=== PATIENT | male | born 1955 | race Caucasian/White ===

== ENCOUNTER 2019-07-02 22:31 | Emergency (ER) | payer MEDICARE, SELFPAY ==
[2019-07-02] VITALS (8 sets, daily range): BP systolic 119–145; BP diastolic 69–75; PULSE 61–68; RESP 10–13; TEMP 36.5; O2SAT 96–98
--- NOTE | 2019-07-02 22:56 | W.ED.GENAD ---
Discharge Plan Disposition Patient Disposition: HOME Condition: Good Discharge Details Chief Complaint: Dizzy/Sync Clinical Impression: Near syncope Primary Care Provider: Gonzales Zhu ED Provider: Neel Wiley [place] Meds and New Rx's Prescriptions: Continued citalopram [Celexa] 20 mg tablet 20 mg PO DAILY Qty: 90 RF: 4 Discharge Instructions Instructions: Near Syncope (ED) Additional Instructions: Your laboratory studies, chest x-ray and EKGs all look fine tonight. Your potassium was a little low. Please drink plenty of fluids to stay hydrated. Please contact your primary care physician for follow-up within the week. Return to ED for syncope, chest pain, shortness of breath, neurologic changes, other concerns. Referrals: Gonzales Zhu [Primary Care Provider] - Discharge Data Discharge Date/Time-TO BE ENTERED AT DEPARTURE: 07/03/19 02:55 Medical Decision Making <ALIYAH Steel - Last Filed: 07/03/19 17:41> 64-year-old gentleman presents via EMS for sounds to be a near syncopal episode. Patient felt a charley horse in his right leg, upon standing felt warm, nauseous, generalized weakness. Reports essentially being asymptomatic now. Examination is unremarkable, he is neurologically intact. Throughout the episode does not report any chest pain whatsoever. Denies any focal weakness. Given his ongoing charley horses, certainly could be a component of dehydration or electrolyte abnormality. It does sound as though his symptoms could be related to a vagal response upon standing. Given his age, obesity, lack of cardiac work-up, I do believe initiating a cardiac work-up is reasonable although based upon his symptoms low suspicion for ACS. His symptoms do not sound to be neurological in nature, without obtain head CT. Patient never had any chest pain, and EKG is unremarkable. Will not initiate aspirin therapy. If patient remains asymptomatic here in the ER his initial troponin work-up are unremarkable I do feel as though observing the patient in the ER for repeat 3-hour troponin is perfectly reasonable. If this too is normal then he can likely be discharged safely with prompt outpatient follow-up with his primary care provider. Case and evaluation discussed with Dr. Wiley. Please see his note. Laboratory values reveal WBC of 7.7 hemoglobin 14.3 hematocrit 41.9 platelet count 224. Sodium 137, potassium 3.2, creatinine 1.18 estimated GFR greater than 60. Glucose 118. Calcium 9.1, mag 1.9, liver function unremarkable. Troponin less than 0.05. TSH 6.96. Although the TSH does fall outside of the normal range, numbers not grossly abnormal to likely be causing acute symptoms. Urine is clear, negative leukocyte esterase, negative nitrates. Patient returned from x-ray. He was given 40 p.o. potassium Initial work-up unremarkable for emergent process. Patient agreeable to 3-hour repeat troponin and EKG. He remains asymptomatic Medical Records Medical records reviewed: Yes I reviewed the patient's medical records. Imaging Data Radiologic Study: Attestation: I personally reviewed and interpreted this imaging study as follows: Imaging: X-Ray My impression: Negative. Confirmed by virtual radiology Lab Data Lab results reviewed: Yes I reviewed the patient's lab results. Lab results narrative: Laboratory Tests Range/Units 07/02/19 07/02/19 07/02/19 22:37 22:37 23:00 WBC (4.4-10.8) k/cumm 7.70 RBC (4.50-6.00) m/cumm 4.71 Hgb (13.5-17.5) g/dL 14.3 Hct (40.0-50.0) % 41.7 MCV (80-95) fL 88.5 MCH (27.0-33.0) pg 30.4 MCHC (32.0-36.0) g/dL 34.3 RDW (11.8-14.1) % 13.1 Plt Count (130-400) x1000/uL 224 MPV (8.0-11.0) fL 10.2 Immature Gran % % 0.1 Neutrophils % 58.0 Lymphocytes % 29.6 Monocytes % 10.1 Eosinophils % 1.9 Basophils % 0.3 Absolute Neutrophils (1.2-6.7) k/cumm 4.46 Absolute Lymphocytes (1.2-3.4) k/cumm 2.28 Absolute Monocytes (0.11-0.7) k/cumm 0.78 H Absolute Eosinophils (0.0-0.7) k/cumm 0.15 Absolute Basophils (0.0-0.2) k/cumm 0.02 Sodium (136-145) mmol/L 137 Potassium (3.5-5.1) mmol/L 3.2 L Chloride (98-107) mmol/L 101 Carbon Dioxide (21.0-32.0) mmol/L 27.0 Anion Gap (3-11) mmol/L 9.0 BUN (7-18) mg/dL 25 H Creatinine (0.70-1.30) mg/dL 1.18 Estimated GFR/1.73 m2 (mL/min/1.73m2) >= 60.00 Glucose (74-106) mg/dL 118 H Calcium (8.5-10.1) mg/dL 9.1 Magnesium (1.8-2.4) mg/dL 1.9 Total Bilirubin (0.2-1.0) mg/dL 0.3 AST (15-37) U/L 25 ALT (16-63) U/L 36 Alkaline Phosphatase (46-116) U/L 77 Troponin I (<0.06) ng/Ml < 0.05 Total Protein (6.4-8.2) g/dL 7.4 Albumin (3.4-5.0) g/dL 3.8 TSH (0.36-3.74) uIU/mL 6.96 H Urine Color (Yellow) Yellow Urine Clarity (Clear) Clear Urine pH (5-8) 6.0 Ur Specific [place] (1.005-1.025) >= 1.030 H Urine Protein (Negative) mg/dL Negative Urine Ketones (Negative) mg/dL Negative Urine Blood (Negative) Negative Urine Nitrite (Negative) Negative Urine Bilirubin (Negative) Negative Urine Urobilinogen (Up TO 0.2) EU/dL 0.2 Ur Leukocyte Esterase (Negative) Negative Urine Glucose (Negative) mg/dL Negative ECG Data Attestation: I personally reviewed and interpreted this ECG (s) as follows: Interpretation: EKG performed at 2238, reviewed and interpreted with Dr. Wiley. Sinus rhythm, ventricular of 64. No acute ST elevation or depression segments. <Neel Wiley MD - Last Filed: 07/03/19 02:19> Patient signed over to me from ALIYAH Sánchez at end of his shift. Patient seen and evaluated by me. Patient discussed at length with AILYAH Sánchez. EKG and laboratory studies reviewed. Patient remains asymptomatic in the ED. Second EKG and troponin are normal. Suspect patient with prolonged vagal reaction to the charley horse which woke him from sleep. Will however have him follow-up with primary care as outpatient. Return to ED for syncope, chest pain, shortness of breath, neurologic changes. Lab Data Lab results reviewed: Yes I reviewed the patient's lab results. ECG Data Attestation: I personally reviewed and interpreted this ECG (s) as follows: Prior ECG tracings: available for review Interpretation: Repeat EKG sinus bradycardia at 54. Normal axis and intervals. Normal ST segments. HPI <ALIYAH Steel - Last Filed: 07/03/19 17:41> General Mode of arrival: EMS. Date/Time Provider Initiated Documentation: 07/02/19 22:33. Limitations to Documentation: no limitations. Information obtained by: patient. HPI Narrative: This is a 64-year-old gentleman with a history of anxiety and depression presenting to the ER via EMS. He reports around 9:00 this evening he felt a charley horse in his right anterior-medial thigh. He reports that he has been getting these on a rather consistent basis over the past few months. This did not feel different than his typical symptoms and he reports it lasted for several minutes. He attempted to stand and walk it off. Upon doing so he reports feeling flushed, nauseous, generalized weakness. He tells me he felt dizzy although did not feel like the room was spinning, more so like he does not walk safely. He was afraid that he could fall and lowered himself to the ground. During this episode he denies any headache, visual changes, neck pain, chest pain, cough, abdominal pain, focal weakness, numbness or tingling. Patient is a rather vague and poor historian, does have difficulty telling me exactly how and what he feels. He denies any shortness of breath but reports that it felt like I did more work that I really did. 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 He denies recent illness or trauma. He reports that he had adequate intake of fluid and food today. He denies any history of smoking or alcohol use. He has never had a stress test or echocardiogram. He reports at this time he essentially feels asymptomatic and feels like he could ambulate safely. Related Data Home Medications Medication Instructions Recorded Confirmed citalopram 20 mg tablet 20 mg PO DAILY #90 tab-cap 11/30/17 07/02/19 Previous Rx's Medication Instructions Recorded citalopram 20 mg tablet 20 mg PO DAILY #90 tab-cap 11/30/17 Allergies Allergy/AdvReac Type Severity Reaction Status Date / Time No Known Allergies Allergy Verified 07/02/19 22:36 General Stated Complaint: Dizzy/Sync MARY: 3 Review of Systems <ALIYAH Steel - Last Filed: 07/03/19 17:41> Constitutional Constitutional: Denies fatigue, Denies fever(s), Denies headache(s) and Reports weakness Eyes Eyes: Denies change in vision ENT Ears, Nose, Mouth, and Throat: Denies headache(s), Denies neck pain and Denies sore throat Cardiovascular Cardiovascular: Denies chest pain and Denies dyspnea Respiratory Respiratory: Denies cough and Denies dyspnea Gastrointestinal Gastrointestinal: Denies abdominal pain, Denies diarrhea, Reports nausea and Denies vomiting Genitourinary Genitourinary: Denies dysuria Musculoskeletal Musculoskeletal: Denies back pain, Denies arthralgias, Reports muscle cramps, Denies neck pain, Denies numbness and Denies tingling Integumentary/Breasts Skin/Breast: Denies rash Neurologic Neurologic: Denies headache(s), Denies localized weakness, Denies numbness, Denies tingling and Reports weakness Endocrine Endocrine: Denies fatigue PFSH <ALIYAH Steel - Last Filed: 07/03/19 17:41> Surgical History PROCEDURES Bertrand right shoulder sx Family History Mother No problems noted. Father Alcohol abuse Sister No problems noted. Brother Diabetes Brother No problems noted. Daughter No problems noted. Daughter No problems noted. Social History Smoking/Tobacco Use Status: Never Alcohol Intake: never Substance use type: does not use current occupation: RETAILER Pets and animals: Yes Pets and animals: dog(s) What type of physical activity do you participate in: none Frequency: does not exercise Karoline/Orthodox: Episcopalian Special karoline needs: No Do you feel safe at home: Yes Do you feel safe in your relationship?: Yes Exam <ALIYAH Steel - Last Filed: 07/03/19 17:41> Const General: cooperative, healthy appearing, comfortable and no acute distress Orientation: alert, awake and oriented x3 [facility] Head: normal to inspection, no palpable skull fracture, normocephalic and atraumatic Ears: external ears normal, TM's normal bilaterally and EAC's normal Face and sinus: normal facial exam Mouth: moist mucous membranes Throat: posterior oropharynx normal Eyes General: appearance normal, both eyes and all related structures Alignment and Position: alignment normal Periorbital: periorbital findings normal Eyelids: eyelids normal Conjunctivae: conjunctivae normal Sclera: sclerae normal Cornea: corneas normal Pupils: PERRL EOM: EOM intact bilaterally Direct ophthalmoscopy: normal light reflex Neck Neck: normal visual inspection, full ROM, no meningeal signs, trachea midline, supple and nontender Chest Chest: normal inspection of the chest and normal palpation of entire chest wall Resp Effort & Inspection: normal respiratory effort and able to speak in complete sentences Auscultation: clear to auscultation bilaterally Cardio Rate: regular rate Rhythm: regular rhythm GI Inspection: normal to inspection and obesity Palpation: soft, not firm, no guarding, not rigid and nontender Auscultation: normal bowel sounds Back/Spine/Pelvis Back: no CVA tenderness and No back tenderness Skin General skin exam: no rashes or lesions noted Neuro General: patient alert, patient awake, patient oriented x3, moves all extremities and no focal motor deficits Cranial Nerves: CN's II-XI intact bilaterally Cognition: normal cognition Speech: speech normal Gait: normal gait Motor: muscle tone normal throughout and strength 5/5 throughout Sensory Exam: no sensory deficits noted Coordination: [id number] test normal, Romberg test normal and Does not sway with eyes open Extrem General: normal to inspection, full ROM, capillary refill normal, no pedal edema and no calf tenderness Psych Appearance: grossly normal Mental Status: mental status grossly normal Course <ALIYAH Steel - Last Filed: 07/03/19 17:41> Vital Signs Vital signs: Vital Signs Temperature 36.5 C 07/02/19 22:31 Pulse 65 07/02/19 22:31 Respiratory Rate 12 07/02/19 22:31 Blood Pressure 144/71 H 07/02/19 22:31 Pulse Oximetry 98 07/02/19 22:31 Temperature 36.5 C 07/02/19 22:31 Pulse 65 07/02/19 22:31 Respiratory Rate 12 07/02/19 22:31 Respiratory Effort Non-Labored 07/02/19 22:33 Blood Pressure 144/71 H 07/02/19 22:31 Blood Pressure Position Supine 07/02/19 22:31 Pulse Oximetry 98 07/02/19 22:31 Oxygen Delivery Method Room Air 07/02/19 22:31 Oxygen Flow Rate 0 07/02/19 22:31 Pain Level 0 07/02/19 22:31 Sign Out <ALIYAH Steel - Last Filed: 07/03/19 17:41> Sign Out Data: Sign Out Comment: Pending observation, repeat 3-hour troponin and EKG, final disposition. Last updated by Srinivas Sánchez PA at 07/02/19 23:55
[2019-07-02 23:01] LABS: Abs Immature Grans 0.01 k/cumm (0.0-0.09); Absolute Basophil Count 0.02 k/cumm (0.0-0.2); Absolute Eosinophil Count 0.15 k/cumm (0.0-0.7); Absolute Lymphocyte Count 2.28 k/cumm (1.2-3.4); Absolute Monocyte Count 0.78 k/cumm (0.11-0.7); Absolute Neutrophil Count 4.46 k/cumm (1.2-6.7); Basophils % 0.3; Eosinophils % 1.9; HCT 41.7 % (40.0-50.0); HGB 14.3 g/dL (13.5-17.5); Immature Grans % 0.1 %; Lymphocytes % 29.6; Mean Corp. HGB Concentration 34.3 g/dL (32.0-36.0); Mean Corpuscular Hemoglobin 30.4 pg (27.0-33.0); Mean Corpuscular Volume 88.5 fL (80-95); Mean Platelet Volume 10.2 fL (8.0-11.0); Monocytes % 10.1; Platelet Count 224 x1000/uL (130-400); RBC 4.71 m/cumm (4.50-6.00); RBC Distribution Width 13.1 % (11.8-14.1)
[2019-07-02] MEDS: Normal Saline 1,000 ML 1000 ML IV (23:05)
[2019-07-02 23:09] LABS: Bilirubin Negative (Negative); Blood Negative (Negative); Clarity Clear (Clear); Glucose Negative (Negative); Ketones Negative (Negative); Leukocyte Esterase Negative (Negative); Nitrite Negative (Negative); Specific Gravity >= 1.030 (1.005-1.025); Urobilinogen 0.2 EU/dL (Up TO 0.2)
--- NOTE | 2019-07-02 23:20 | DI.RAD_ITS ---
EXAM: XR CHEST 2V PA LATERAL CLINICAL HISTORY: near syncope TECHNIQUE: 2D digital imaging was performed. COMPARISON: CR LEFT SHOULDER COMPLETE from 07/02/2014 CR RIGHT SHOULDER COMPLETE from 07/02/2014 FINDINGS: MEDIASTINUM: Normal. HEART: Normal. PULMONARY VASCULATURE: Normal. LUNGS: Clear. PLEURAL SPACE: No pleural effusion or pneumothorax. BONE:Old healed left rib fractures are present. OTHER FINDINGS:Since the prior examination of the shoulder, the patient has undergone a right shoulde r arthroplasty. IMPRESSION: No acute pulmonary findings. DATA REPOSITORY: RADIATION DOSE DELIVERED:
[2019-07-02 23:21] LABS: ALT 36 U/L (16-63); AST 25 U/L (15-37); Albumin 3.8 g/dL (3.4-5.0); Alkaline Phosphatase 77 U/L (46-116); BUN 25 mg/dL (7-18); Bilirubin, Total 0.3 mg/dL (0.2-1.0); CREATININE 1.18 mg/dL (0.70-1.30); Calcium 9.1 mg/dL (8.5-10.1); Chloride 101 mmol/L (98-107); Glucose 118 mg/dL (74-106); Magnesium 1.9 mg/dL (1.8-2.4); Potassium 3.2 mmol/L (3.5-5.1); Sodium 137 mmol/L (136-145); TSH 6.96 uIU/mL (0.36-3.74); Total Protein 7.4 g/dL (6.4-8.2); Troponin I < 0.05 ng/Ml (<0.06)
[2019-07-02] MEDS: Potassium Chloride 20 MEQ TABCR 40 MEQ PO (23:24)
--- NOTE | 2019-07-02 23:26 | DI.VRAD_ITS ---
PROCEDURE INFORMATION: Exam: XR Chest, 2 Views Exam date and time: 07/02/2019 11:16 PM Age: 64 years old Clinical indication: Other: Near syncope; Patient HX: PT states kept falling down today TECHNIQUE: Imaging protocol: XR of the chest Views: 2 views. COMPARISON: No relevant prior studies available. FINDINGS: Lungs: The lung torres appear clear. Pleural space: No pleural effusion or pneumothorax is seen. Heart/Mediastinum: Heart size is normal. The mediastinal contours appear normal. Bones/joints: There is a right shoulder arthroplasty prosthesis. There appear to be several old left-sided rib fractures. IMPRESSION: No active disease is seen in the chest. Dictated and Authenticated by: Steven Tee MD. Ordering:MIKAYLA Espino MD
[2019-07-03] VITALS (7 sets, daily range): BP systolic 123–126; BP diastolic 56–80; PULSE 55–64; RESP 8–22; TEMP 36.5; O2SAT 95–98
[2019-07-03 02:01] LABS: Troponin I < 0.05 ng/Ml (<0.06)
== END 2019-07-03 02:55 | disposition home or self-care (01) ==
PROVIDERS: Physician Assistant; Emergency Provider Emergency Medicine; PCP Family Medicine
DX: R55 Syncope and collapse (principal); E87.6 Hypokalemia; M62.831 Muscle spasm of calf
CPT/HCPCS: 36415; 80053; 93005; 96360; 99285; 71046; 81003; 83735; 84443; 84484; 85025; 93010

== ENCOUNTER 2021-04-21 16:38 | Outpatient (REF) | payer MEDICARE, SELFPAY ==
[2021-04-22 13:50] LABS: COVID-19 RT-PCR UVMMC Result Negative (Negative)
== END 2021-04-21 16:39 | disposition home or self-care (01) ==
LOC: LBN 16:38
PROVIDERS: PCP Family Medicine; Visit Provider Family Medicine
DX: J02.9 Acute pharyngitis, unspecified (principal); R05.9 Cough, unspecified; Z20.822 Contact with and (suspected) exposure to COVID-19
CPT/HCPCS: U0003; U0005

== ENCOUNTER 2021-10-04 08:56 | Outpatient (CLI) | payer MEDICARE, SELFPAY ==
--- NOTE | 2021-10-04 08:30 | DI.RAD_ITS ---
Exam(s) XR KNEE RT 3V AP,LAT,CRYSTAL EXAM: XR KNEE RT 3V AP,LAT,CRYSTAL CLINICAL HISTORY: right knee pain. TECHNIQUE: 2D digital imaging was performed of the right knee. Three views obtained. AP, lateral an d PA tunnel views were obtained. COMPARISON: No priors for comparison. FINDINGS: BONES: No acute fracture is present. No bony destructive lesion is seen. JOINTS: There is mild narrowing of the medial femoral tibial joint. Mild spurring is seen at the pos terior patella. There is a small suprapatellar joint effusion. SOFT TISSUE: Normal. IMPRESSION: Mild degenerative changes of the right knee. DATA REPOSITORY: RADIATION DOSE DELIVERED:
== END 2021-10-04 08:57 | disposition home or self-care (01) ==
LOC: DIORS 08:56
PROVIDERS: PCP Family Medicine; Referring Provider Family Medicine; Visit Provider Physician Assistant
DX: M23.91 Unspecified internal derangement of right knee (principal); M17.11 Unilateral primary osteoarthritis, right knee; S89.91XA Unspecified injury of right lower leg, initial encounter; X58.XXXA Exposure to other specified factors, initial encounter
CPT/HCPCS: 20610; 73562; 99213; J1040

== ENCOUNTER 2022-05-09 20:31 | Emergency (ER) | payer MEDICARE, SELFPAY ==
--- NOTE | 2022-05-09 20:30 | DI.CT_ITS ---
Exam(s) CT RENAL COLIC WO EXAM: CT RENAL COLIC WO CLINICAL HISTORY: right flank pain. TECHNIQUE: Imaging Protocol: Axial computed tomography images with coronal and sagittal reformatted images were created and reviewed. COMPARISON: No exams were available for comparison FINDINGS: ABDOMEN: Lung Bases: Coronary artery calcification is present. Liver: Normal density. No measurable mass. Gallbladder and biliary tract: No radiodense calculus or biliary ductal dilation. Pancreas: Normal density, no abnormal calcifications or inflammatory process. Spleen: Normal. Kidneys: Normal size, contour and axis.There is a 2 mm stone at the right UVJ causing mild hydronephr osis. There is a 2.7 cm simple cyst in the inferior pole of the right kidney. No follow-up is recom mended. Adrenal glands: No mass is seen. Lymph nodes: Within normal limits. Abdominal Aorta: Abdominal portion non-dilated. Mild atherosclerosis. PELVIS: Bladder:Not well distended limiting evaluation. Bowel: No obstruction or bowel wall thickening. Appendix is unremarkable. Peritoneal cavity: No ascites, collection or mesenteric inflammatory response. No free air. Reproductive organs: Unremarkable as visualized. Bones: Within normal limits. Soft Tissues: Within normal limits. IMPRESSION: There is a 2 mm stone on the bladder side of the right UVJ causing mild hydronephrosis. RADIATION DOSE DELIVERED: 1,308.44mGy.cm Total DLP DATA REPOSITORY: All CT scans at this facility are submitted to the National Radiology Data Registry (NRDR) Dose Index Registry (DIR) with the [employer] (ACR). RADIATION OPTIMIZATION: All CT scans at this facility use at least one of these dose optimization te chniques: automated exposure control; mA and/or kV adjustment per patient size (includes targeted exa ms where dose is matched to clinical indication); or iterative reconstruction.
[2022-05-09 20:35] VITALS: BP 160/99; PULSE 64; RESP 20; TEMP 36.7; O2SAT 97
--- NOTE | 2022-05-09 20:46 | ED.GENADUL_ITS ---
Discharge Plan Disposition Patient Disposition: Home Condition: Stable Discharge Details Clinical Impression: Right kidney stone Primary Care Provider: Phani Tsai ED Provider: Huy Barton Home Meds and New Rx's Prescriptions: New ondansetron 4 mg tablet,disintegrating 4 mg PO Q8H PRN (Reason: nausea and vomiting) Qty: 30 0RF Discharge Instructions Instructions: Kidney Stones (ED) Additional Instructions: your cat scan shows a small kidney stone, 2mm, on the right side follow up with urology you can take tylenol and ibuprofen as needed, follow dosing instructions on packaging if you have severe worsening pain, persistent vomiting or fevers return to the emergency department Referrals: Cholo Hughes MD [ [facility] STAFF PHYSICIAN] - Medical Decision Making 66 yo male with no chronic medical problems who comes in with cc of acute onset right lower back and oblique pain. HE denies any trauma or falls and felt well most of the day and then the pain started suddenly while he was standing. Denies pain like this in the past. He arrives stable speaking clearly and appears in pain. He did have an episode of vomiting. He poins to his right lower oblique and lower back where his pain is, no visible or palpable deformities, no abdominal tenderness. Suspect kidney stone given acute onset of pain and location, will proceed with cbc, cmp, and ct renal colic. ct confirms 2mm kidney stone nearly in the bladder on the right side. HE is feeling better, ua pending. urine shows no evidence of infection, he is pain free, stable for d/c, will provide follow up with urology and return precautions given Differential Diagnosis Differential Diagnosis: kidney stone, musculoskeletal pain Imaging Data Radiologic Study: Attestation: I personally reviewed and interpreted this imaging study as follows: Imaging: CT Scan Radiologist's impression: IMPRESSION: 1. Right ureteral vesicular junction stone, 2 mm, almost within the urinary bladder. 2. Mild right hydroureteronephrosis. Lab Data Lab results reviewed: Yes I reviewed the patient's lab results. HPI General Mode of arrival: ambulatory . Date/Time Provider Initiated Documentation: 05/09/22 20:31 . Limitations to Documentation: no limitations . Information obtained by: patient . History of Present Illness 66 year old M presents to the emergency department with the chief complaint of right flank pain, described as severe, with intensity rated at 9. and is localized to the back. Patient started experiencing this hour(s) (2) and it has been constant. No relieving factors improve symptom(s), No exacerbating factors reported . Patient notes denies fever/chills. Related Data Home Medications Medication Instructions Recorded Confirmed ondansetron 4 mg disintegrating 4 mg PO Q8H PRN nausea and 05/09/22 tablet vomiting #30 tabs Previous Rx's Medication Instructions Recorded ondansetron 4 mg disintegrating 4 mg PO Q8H PRN nausea and 05/09/22 tablet vomiting #30 tabs Allergies Allergy/AdvReac Type Severity Reaction Status Date / Time No Known Allergies Allergy Verified 10/04/21 08:15 General Stated Complaint: FlankPain MARY: 3 Review of Systems All systems reviewed & are unremarkable except as noted in HPI and below Constitutional Constitutional: Denies chills, Denies fever(s) and Denies weakness Cardiovascular Cardiovascular: Denies chest pain and Denies dyspnea Respiratory Respiratory: Denies cough and Denies dyspnea Gastrointestinal Gastrointestinal: Denies abdominal pain Genitourinary Genitourinary: Denies dysuria Musculoskeletal Musculoskeletal: Denies joint swelling Integumentary/Breasts Skin/Breast: Denies rash Neurologic Neurologic: Denies weakness PFSH All Active Problems (Updated 05/09/22 @ 22:20 by Huy Barton MD) Right kidney stone (Acute) Degenerative joint disease of right knee (Acute) Internal derangement of right knee (Acute) Depo-medrol injection: 10/04/21 Health maintenance alteration (Acute) 12/2020-patient declines colon cancer screening-aware of risks and benefits GINETTE on CPAP (Chronic) Tubular adenoma (Chronic 09/12/10) Mood disorder (Acute 09/17/15) Hearing loss (Acute) Depression (Chronic) Medical History (Updated 05/09/22 @ 22:20 by Huy Barton MD) Family history of diabetes mellitus in brother Surgical History PROCEDURES Bertrand right shoulder sx Family History Mother No problems noted. Father Alcohol abuse Sister No problems noted. Brother Diabetes Brother No problems noted. Daughter No problems noted. Daughter No problems noted. Social History (Updated 04/23/21 @ 10:42 by Shawnee Whelan Smoking/Tobacco Use Status: Former Tobacco Use tobacco type: cigarettes Quit Date: 02/14/72 Tobacco: How many years used: 50 Quit status: quit date established Second Hand Exposure: Yes Smoking risk assessment performed?: Yes Alcohol Intake: former Substance use type: painkillers Household members: spouse Housing: house Communication Needs: Hard of Hearing current occupation: RETAILER Pets and animals: Yes Do you think of yourself as: straight/heterosexual Current gender identity: male What is your relationship status?: How often do you talk on the phone with friends or family?: once per week How often do you get together with friends or relatives?: twice per week How often do you attend baptist or amish services?: 1-3 times per year Do you belong to any clubs or organized social groups?: yes Panel score (0-1 are the most socially isolated patients): 3 What type of physical activity do you participate in: walking Do you feel safe at home: Yes Do you feel safe in your relationship?: Yes Exam Const General: no acute distress Orientation: alert HENMT Head: normal to inspection Ears: external ears normal General nose exam: external nose normal Mouth: moist mucous membranes Eyes General: appearance normal, both eyes and all related structures Neck Neck: normal visual inspection Resp Effort & Inspection: normal respiratory effort and able to speak in complete sentences Cardio Rate: regular rate GI Palpation: soft and nontender Back/Spine/Pelvis Back: no CVA tenderness Skin General skin exam: no rashes or lesions noted Neuro General: patient alert and patient oriented x3 Extrem General: normal to inspection Psych Mental Status: mental status grossly normal Course Vital Signs Vital signs: Vital Signs Temperature 36.7 C 05/09/22 20:35 Pulse 64 05/09/22 20:35 Respiratory Rate 20 05/09/22 20:35 Blood Pressure 160/99 H 05/09/22 20:35 Pulse Oximetry 97 05/09/22 20:35 Temperature 36.7 C 05/09/22 20:35 Temperature Source Tympanic 05/09/22 20:35 Pulse 64 05/09/22 20:35 Respiratory Rate 20 05/09/22 20:35 Blood Pressure 160/99 H 05/09/22 20:35 Blood Pressure Position Sitting 05/09/22 20:35 Pulse Oximetry 97 05/09/22 20:35 Oxygen Delivery Method Room Air 05/09/22 20:35 Oxygen Flow Rate 0 05/09/22 20:35 Pain Level 9 05/09/22 20:35
[2022-05-09 21:04] LABS: Abs Immature Grans 0.04 10^3/uL (0.0-0.06); Absolute Basophil Count 0.04 10^3/uL (0.0-0.2); Absolute Eosinophil Count 0.11 10^3/uL (0.0-0.7); Absolute Lymphocyte Count 2.34 10^3/uL (1.2-3.4); Absolute Monocyte Count 0.81 10^3/uL (0.1-0.8); Absolute Neutrophil Count 6.94 10^3/uL (1.2-6.7); Basophils % 0.4; Eosinophils % 1.1; HCT 46.5 % (40.0-50.0); HGB 15.8 g/dL (13.5-17.5); Immature Grans % 0.4; Lymphocytes % 22.8; MCH 29.6 pg (27.0-33.0); MCV 87 fL (80-95); MPV 9.5 fL (8.0-11.0); Monocytes % 7.9; Neutrophils % 67.4; Platelet Count 204 10^3/uL (130-400); RBC 5.33 10^6/uL (4.36-5.78); RDW 12.7 % (11.8-14.1); RDW-SD 40.6 fL; WBC 10.28 10^3/uL (4.4-10.8)
[2022-05-09] MEDS: Normal Saline 1,000 ML 1000 ML IV (21:07)
[2022-05-09] MEDS: Ketorolac 15 MG/ML VIAL IVP (21:07)
[2022-05-09] MEDS: Ondansetron 4 MG/2 ML VIAL IVP (21:08)
[2022-05-09 21:19] LABS: ALT 34 U/L (16-63); AST 20 U/L (15-37); Albumin 4.2 g/dL (3.4-5.0); Alkaline Phosphatase 86 U/L (46-116); Anion Gap 8.6 mmol/L (3-11); BUN 21 mg/dL (7-18); Bilirubin, Total 0.4 mg/dL (0.2-1.0); CO2 28.4 mmol/L (21.0-32.0); CREATININE 1.3 mg/dL (0.70-1.30); Calcium 9.6 mg/dL (8.5-10.1); Chloride 105 mmol/L (98-107); Estimated GFR 59.84 (mL/min/1.73m2); Glucose 142 mg/dL (74-106); Lipase 36 U/L (16-77); Magnesium 1.9 mg/dL (1.8-2.4); Potassium 3.9 mmol/L (3.5-5.1); Sodium 142 mmol/L (136-145)
[2022-05-09] MEDS: HYDROmorphone 2 MG/ML SYR 1 MG IVP (21:31)
--- NOTE | 2022-05-09 22:13 | DI.VRAD_ITS ---
PROCEDURE INFORMATION: Exam: CT Abdomen And Pelvis Without Contrast Exam date and time: 05/09/2022 9:00 PM Age: 66 years old Clinical indication: Other: Right flank pain TECHNIQUE: Imaging protocol: Computed tomography of the abdomen and pelvis without contrast. Radiation optimization: All CT scans at this facility use at least one of these dose optimization techniques: automated exposure control; mA and/or kV adjustment per patient size (includes targeted exams where dose is matched to clinical indication); or iterative reconstruction. COMPARISON: CR XR CHEST 2V PA LATERAL 07/02/2019 11:16 PM FINDINGS: Lungs: Mild scarring or atelectasis is observed in the lung bases. Coronary arteries: Mild coronary artery calcifications are noted. Liver: Unremarkable noncontrast liver imaging. Gallbladder and bile ducts: Normal. No calcified stones. No ductal dilation. Pancreas: Normal. No ductal dilation. Spleen: Normal. No splenomegaly. Adrenal glands: Normal. No mass. Kidneys and ureters: Mild right hydronephrosis. Mildly dilated right ureter. A 2 mm stone is noted near the right ureteral vesicular junction. Mild fat stranding is observed around both kidneys, likely chronic. Stomach and bowel: Unremarkable. No obstruction. No mucosal thickening. Appendix: Normal appendix. Intraperitoneal space: Unremarkable. No free air. No significant fluid collection. Vasculature: Negative for abdominal aortic aneurysm. Mild vascular calcifications are noted. Lymph nodes: Unremarkable. No enlarged lymph nodes. Urinary bladder: Collapsed. A stone is noted near the right ureteral vesicular junction. No other stones are observed in the bladder. Reproductive: Unremarkable as visualized. Bones/joints: No compression fractures. Enthesophyte formation is noted at multiple levels. Degenerative disc disease and facet arthropathy are noted at multiple levels. Mild narrowing and osteophyte formation observed in the hips. Soft tissues: Unremarkable. IMPRESSION: 1. Right ureteral vesicular junction stone, 2 mm, almost within the urinary bladder. 2. Mild right hydroureteronephrosis. Dictated and Authenticated by: Huy Hughes MD. Ordering:CRYSTAL Son MD
--- NOTE | 2022-05-09 22:24 | NUR.NOTE ---
Referral sent to urology for Kidney stone. Per [facility]
[2022-05-09 22:40] LABS: Bilirubin Negative (Negative); Blood Large (Negative); Clarity Clear (Clear); Glucose Negative (Negative); Ketones Negative (Negative); Leukocyte Esterase Negative (Negative); Nitrite Negative (Negative); Specific Gravity >= 1.030 (1.005-1.025); Urobilinogen 0.2 mg/dL (Up to 0.2)
[2022-05-09 22:41] LABS: Bacteria Moderate HPF (Negative); C & S Indicated? Yes; Crystals Negative HPF (Negative); Epithelial Cells Rare HPF (Negative); Mucus Moderate (Negative); RBC 20-50 HPF (0-2)
[2022-05-09 23:06] VITALS: BP 135/82; PULSE 57; RESP 18; O2SAT 97
--- NOTE | 2022-05-12 14:13 | NUR.NOTE ---
Nursing Note: Accessed chart to look up whether or not on antibiotic.
== END 2022-05-09 23:59 | disposition home or self-care (01) ==
PROVIDERS: Emergency Provider Emergency Medicine; PCP Family Medicine
DX: N20.0 Calculus of kidney (principal)
CPT/HCPCS: 36415; 80053; 83690; 96361; 96374; 96375; 99284; 74176; 81003; 81015; 83735; 85025; 87086; J1170; J1885; J2405

== ENCOUNTER 2023-10-03 10:10 | Outpatient (CLI) | payer MEDICARE, SELFPAY ==
[2023-10-03 12:39] LABS: Calculated LDL 115 mg/dL (<100); Cholesterol 202 mg/dL (<200); HDL Cholesterol 58 mg/dL (40-60); Triglyceride 146 mg/dL (<150)
[2023-10-03 13:16] LABS: Hemoglobin A1C 5.6 % (<5.7)
== END 2023-10-03 10:11 | disposition home or self-care (01) ==
LOC: LOS 10:10
PROVIDERS: PCP Family Medicine; Referring Provider Family Medicine; Visit Provider Family Medicine
DX: E78.5 Hyperlipidemia, unspecified (principal); E11.51 Type 2 diabetes mellitus with diabetic peripheral angiopathy without gangrene; I70.209 Unspecified atherosclerosis of native arteries of extremities, unspecified extremity; R41.89 Other symptoms and signs involving cognitive functions and awareness; R20.0 Anesthesia of skin
CPT/HCPCS: 36415; 80061; 83036

== ENCOUNTER 2024-04-09 09:17 | Outpatient (CLI) | payer MEDICARE, SELFPAY ==
[2024-04-09 12:42] LABS: ESR 14 mm/hr (0-20)
[2024-04-09 13:23] LABS: C-Reactive Protein < 0.50 mg/dL (<or=0.5)
== END 2024-04-09 09:18 | disposition home or self-care (01) ==
PROVIDERS: PCP Family Medicine; Referring Provider Family Medicine; Visit Provider Family Medicine
DX: R51.9 Headache, unspecified (principal)
CPT/HCPCS: 36415; 85652; 82565; 86140

== ENCOUNTER 2024-04-09 12:00 | Outpatient (CLI) | payer MEDICARE, SELFPAY ==
--- NOTE | 2024-04-09 11:45 | DI.CT_ITS ---
Exam(s) CT BRAIN NECK CTA EXAM: CT BRAIN NECK CTA CLINICAL HISTORY: recurrent left scalp/face numbness/tingling 8 mos. R51.9 HEADACHE. TECHNIQUE: Imaging Protocol: Axial CT angiography was performed with multi-slice acquisition and mu lti-planar and MIP reconstructions. CONTRAST MATERIAL: Intravenous: Omnipaque 350 Contrast volume:100 ml COMPARISON: No exams were available for comparison FINDINGS: CT Head W/O and W contrast: Ventricles and Extra axial spaces: Normal in size and morphology for the patient's age. Hemorrhage: None. Cerebral parenchyma: No evidence of acute infarct or mass. Midline shift: None. Brainstem/Cerebellum: No acute findings.. Calvarium: Normal. Visualized Paranasal sinuses/Mastoids: Clear. Soft Tissues: Unremarkable. Enhancement: Normal. CTA Brain W: Internal Carotid Arteries: Petrous: Normal. Cavernous: Normal. Cerebral: Normal. Middle Cerebral Arteries: Right: No aneurysm, occlusion or significant stenosis. Left: No aneurysm, occlusion or significant stenosis. Anterior Cerebral Arteries: Right: No aneurysm, occlusion or significant stenosis. Left: No aneurysm, occlusion or significant stenosis. Posterior cerebral Arteries: Right: No aneurysm, occlusion or significant stenosis. Left: No aneurysm, occlusion or significant stenosis. Vertebral Arteries: Right: No aneurysm, occlusion or significant stenosis. Left: No aneurysm, occlusion or significant stenosis. Basilar Artery: No aneurysm, occlusion or significant stenosis. CTA Neck W: Common Carotid: Minimal plaque at both common carotid bulbs. Right: No dissection, occlusion or significant stenosis. Left: No dissection, occlusion or significant stenosis. External Carotid: Right: No dissection, occlusion or significant stenosis. Left: No dissection, occlusion or significant stenosis. Internal Carotid: Minimal plaque at both proximal internal carotid arteries. Right: No dissection, occlusion or significant stenosis. Left: No dissection, occlusion or significant stenosis. Vertebral Artery: Right: No dissection, occlusion or significant stenosis. Left: No dissection, occlusion or significant stenosis. Lung Apices: No acute findings. Bones: No acute abnormality. Soft Tissues: Normal. IMPRESSION: 1. CTA brain: Normal CTA examination of the [place]. 2. Head CT: Unremarkable CT Head. 3. CTA neck: Mild calcific plaque at the common carotid bulbs and proximal internal carotid arteries. RADIATION DOSE DELIVERED: Total DLP DATA REPOSITORY: All CT scans at this facility are submitted to the National Radiology Data Registry (NRDR) Dose Index Registry (DIR) with the [employer] ([employer]). RADIATION OPTIMIZATION: All CT scans at this facility use at least one of these dose optimization te chniques: automated exposure control; mA and/or kV adjustment per patient size (includes targeted exa ms where dose is matched to clinical indication); or iterative reconstruction.
[2024-04-09 12:48] LABS: Estimated GFR 80.97 (mL/min/1.73m2)
[2024-04-09] MEDS: Omnipaque 350 MG/ML 100 ML BTL 70 ML IJ (13:19)
[2024-04-09] MEDS: Normal Saline - Diluent 50 ML VIAL IJ (13:20)
== END 2024-04-09 12:20 ==
LOC: DI 12:18
PROVIDERS: PCP Family Medicine; Visit Provider Family Medicine
DX: R51.9 Headache, unspecified (principal)
CPT/HCPCS: 36415; 70496; 70498; 85652; 82565; 86140; J3490